=== PATIENT | female | born 1990 | race Caucasian/White ===

== ENCOUNTER 2023-05-10 22:21 | Emergency (ER) | payer OTHER ==
[~2023-05-10] VITALS: Ht 160 cm; Wt 63.5 kg
[2023-05-10 22:29] VITALS: BP 135/78; PULSE 74; RESP 15; TEMP 97.5; O2SAT 100
[2023-05-10] MEDS ORDERED: DEXAMETHASONE 10 MG/ML VIAL IM ONE (23:20)
[2023-05-10] MEDS ORDERED: ACET-8905 PO ×2 (23:21→23:25)
[2023-05-10 23:49] VITALS: BP 135/78; PULSE 74; RESP 15; TEMP 97.5; O2SAT 100
== END 2023-05-10 23:49 | disposition home or self-care (01) ==
LOC: MED 22:21
DX: M54.50 Low back pain, unspecified (principal); Z79.899 Other long term (current) drug therapy
CPT/HCPCS: 96372; 99283; J1100

== ENCOUNTER 2023-06-19 16:13 | Emergency (ER) | payer MEDICAID, OTHER ==
[~2023-06-19] VITALS: Ht 167.6 cm; Wt 72.6 kg
[~2023-06-19 16:13] MED LIST: ACET-8905 PO
[2023-06-19 16:30] VITALS: BP 129/92; PULSE 90; RESP 18; TEMP 97; O2SAT 98
[2023-06-19] MEDS ORDERED: IBUP-2213 PO (17:06)
[2023-06-20] MEDS ORDERED: AMOX500C25 PO (17:15)
== END 2023-06-19 17:17 | disposition home or self-care (01) ==
LOC: MED 16:13
DX: J02.9 Acute pharyngitis, unspecified (principal); Z79.899 Other long term (current) drug therapy
CPT/HCPCS: 87081; 99283